=== PATIENT | female | born 1955 | race Caucasian/White ===

== ENCOUNTER 2017-04-22 06:30 | Day surgery (SDC) | payer OTHER ==
[2017-04-22] MEDS ORDERED: Lactated Ringers 1,000 ML IV SCH (07:00)
[2017-04-22] MEDS ORDERED: Propofol 200 MG/20 ML SDV ONE ×2 (07:41→07:58)
[2017-04-22] MEDS ORDERED: Midazolam 1 MG/ML 2 ML SDV ONE (07:41)
[2017-04-22] MEDS ORDERED: fentaNYL 100 MCG/2 ML SDV ONE (07:41)
[2017-04-22 09:13] VITALS: BP 117/70
--- NOTE | 2017-04-22 09:21 | OR ---
DATE OF PROCEDURE: 04/22/2017 PREOPERATIVE DIAGNOSIS: Colon cancer screening. POSTOPERATIVE DIAGNOSIS: Two small colon polyps, transverse colon and 20 cm from the anal verge. PROCEDURE: Colonoscopy to the cecum with biopsy resection of 2 small colon polyps. ANESTHESIA: IV anesthesia with monitored anesthesia care. INDICATION: This 61-year-old white female is referred for a colonoscopy for colon cancer screening. She says her last colonoscopic exam was done 10 years ago. She also says she had some polyps, which were removed. Presumably, these were hyperplastic because her colonoscopist told her she would not need another colonoscopy for 10 years. I counseled her for the procedure including risks and alternatives, and she gave her informed consent to proceed. DESCRIPTION OF PROCEDURE: The patient was placed in the left lateral decubitus position. IV anesthesia was administered by the Anesthesia Service. Time-out was held. A rectal exam was performed, which was unremarkable. The flexible video Olympus colonoscope was introduced through her anus, up her rectum, out her colon, all the way to the cecum. En route, in the transverse colon, we saw a small polyp, which was removed with a couple of bites of biopsy forceps. Once the cecum was reached, the scope was slowly withdrawn, examining the mucosa throughout. No additional mucosal abnormalities were noted until we reached 20 cm from the anal verge. Here another small polyp was seen, which was removed with the biopsy forceps. The scope was brought back into the rectum, where it was retroflexed. The distal rectum appeared unremarkable. The scope was straightened and removed. She tolerated the procedure well. Keith Melchor MD /[id number]
== END 2017-04-22 09:10 | disposition home or self-care (01) ==
LOC: JP.SDS 06:30
PROVIDERS: ATTEND Surgery
DX: Z12.11 Encounter for screening for malignant neoplasm of colon (principal); D12.3 Benign neoplasm of transverse colon; D12.6 Benign neoplasm of colon, unspecified; E11.22 Type 2 diabetes mellitus with diabetic chronic kidney disease; N18.3 Chronic kidney disease, stage 3 (moderate); G47.30 Sleep apnea, unspecified; E78.5 Hyperlipidemia, unspecified; K21.9 Gastro-esophageal reflux disease without esophagitis; E66.9 Obesity, unspecified; Z88.1 Allergy status to other antibiotic agents; Z88.8 Allergy status to other drugs, medicaments and biological substances
CPT/HCPCS: 88305; J2250; J2704; J3010; J7120

== ENCOUNTER 2017-07-12 09:56 | Emergency (ER) | payer OTHER ==
[2017-07-12 10:06] VITALS: BP 138/72
[2017-07-12] MEDS: Aspirin 81 MG Tab.Chew PO ONE (10:37)
--- NOTE | 2017-07-12 10:37 | EDM.PDOC ---
ED HPI GENERAL MEDICAL PROBLEM - General Chief Complaint: Chest Pain Stated Complaint: CHEST PAIN ALSO IN JAW AREA Time Seen by Provider: 07/12/17 10:30 Source of Information: Reports: Patient, Family History Limitations: Reports: No Limitations - History of Present Illness INITIAL COMMENTS - FREE TEXT/NARRATIVE: pt arrived with pain that went around the Bra line and to her back. This did last for about 1 hr. She did not vomit or get sweaty. She is pain free at this time. She has a known hiatal hernia. Onset: Today, Other (lasted about 1/2 hour and she was more concerned because she had the jaw pain. ) Duration: Minutes: Location: Reports: Chest, Abdomen Associated Symptoms: Reports: Chest Pain chest Pain Score (Numeric/FACES): 2 - Related Data Allergies Allergy/AdvReac Type Severity Reaction Status Date / Time ciprofloxacin Allergy Body Aches Verified 07/12/17 10:07 pramipexole di-HCl Allergy Body Aches Verified 07/12/17 10:07 [From Mirapex] Home Meds: Home Meds Fluticasone Propionate [Flonase] 2 spray BRANDI ASDIRECTED PRN 08/24/13 [History] Aspirin [Adult Low Dose Aspirin EC] 81 mg PO DAILY 05/16/15 [History] Cholecalciferol (Vitamin D3) [Vitamin D3] 5,000 unit PO DAILY 05/16/15 [History] Loratadine [Claritin] 10 mg PO DAILY PRN 05/16/15 [History] Docosahexanoic Acid/EPA [Fish Oil Concentrate Softgel] 1 tab PO BID 02/18/16 [ History] EPINEPHrine [Epipen] 0.3 mg IM ASDIRECTED 02/18/16 [History] Gluc 2KCl/Chondr/Wanda Hy/Hy Ac [Glucosamine & Chondroitin Cap] 2 tab PO DAILY [History] Montelukast Sodium [Singulair] 10 mg PO DAILY PRN 02/18/16 [History] Niacin 500 mg PO BID 02/18/16 [History] Vitamin B Complex [B Complex] 1 tab PO DAILY 02/18/16 [History] Calcium Carb/Mag Ox/Zinc Gluc [Puzdevh-Ngbjbqlpa-Bhzd] 1 tab PO BEDTIME [History] Cetirizine [ZyrTEC] 10 mg PO DAILY 04/20/17 [History] Past Medical History HEENT History: Reports: Allergic Rhinitis, Epistaxis, Impaired Vision Cardiovascular History: Reports: High Cholesterol Other Cardiovascular History: stress test 3 year ago Respiratory History: Reports: Sleep Apnea Gastrointestinal History: Reports: Cholelithiasis, Colon Polyp, GERD, Hiatal Hernia Genitourinary History: Reports: None DIRECTOR OF FIRST IMPRESSIONS History: Reports: Dysfunctional Uterine Bleeding, Endometrial Ablation Musculoskeletal History: Reports: Fracture, Osteoarthritis Neurological History: Reports: Concussion, Head Trauma, Vertigo Psychiatric History: Reports: Anxiety, Depression Endocrine/Metabolic History: Reports: Obesity/BMI 30+, Vitamin D Deficiency, Other (See Below) Other Endocrine/Metabolic History: pre-diabetic Hematologic History: Reports: Anemia, Iron Deficiency Oncologic (Cancer) History: Reports: Breast Other Oncologic History: right side ok to use - Infectious Disease History Infectious Disease History: Reports: Chicken Pox, Measles, Mumps - Past Surgical History Head Surgeries/Procedures: Reports: None HEENT Surgical History: Reports: Other (See Below) Other HEENT Surgeries/Procedures: cauterized left side for nose bleeds Cardiovascular Surgical History: Reports: None Respiratory Surgical History: Reports: None GI Surgical History: Reports: Appendectomy, Cholecystectomy, Colonoscopy Female Surgical History: Reports: Breast Biopsy, Endometrial Ablation Endocrine Surgical History: Reports: None Neurological Surgical History: Reports: None Musculoskeletal Surgical History: Reports: Arthroscopic Knee, Other (See Below) Other Musculoskeletal Surgeries/Procedures:: Right foot cyst removed Oncologic Surgical History: Reports: Biopsy of Breast, Lumpectomy Dermatological Surgical History: Reports: None Social & Family History - Family History Family Medical History: Noncontributory Cardiac: Reports: Bypass, Hypertension, Pacemaker, Stent - Tobacco Use Smoking Status *Q: Never Smoker Second Hand Smoke Exposure: No - Caffeine Use Caffeine Use: Reports: Soda - Alcohol Use Days Per Week of Alcohol Use: 0 - Recreational Drug Use Recreational Drug Use: No ED ROS GENERAL - Review of Systems Review Of Systems: See Below Constitutional: Reports: No Symptoms HEENT: Reports: No Symptoms Respiratory: Reports: No Symptoms Cardiovascular: Reports: Chest Pain, Other (pt developed pain around the bra line and this went to her back. She has a long history of reflux and a hiatal hernia. ) Endocrine: Reports: No Symptoms GI/Abdominal: Reports: Abdominal Pain : Reports: No Symptoms Musculoskeletal: Reports: No Symptoms Skin: Reports: No Symptoms ED EXAM, GENERAL - Physical Exam Exam: See Below Free Text/Narrative:: pt arrived with a history of 1/2 hour of pain in the lower chest and upper abdoman. She was not nauseated and did not vomit. She has a history of reflux and a hiatal hernia. Exam Limited By: No Limitations General Appearance: Alert, No Apparent Distress, Anxious, Other (pt had become pain free prior to arrival. ) Ears: Normal TMs Nose: Normal Inspection Throat/Mouth: Normal Inspection Head: Atraumatic Neck: Normal Inspection Respiratory/Chest: No Respiratory Distress Cardiovascular: Regular Rate, Rhythm GI/Abdominal: Soft, Non-Tender (Female) Exam: Deferred Rectal (Female) Exam: Deferred Back Exam: Normal Inspection Extremities: Normal Inspection Neurological: Alert, Oriented, Normal Cognition Psychiatric: Normal Affect Course - Vital Signs Last Recorded V/S: Last Vital Signs Temp 36.0 C 07/12/17 10:03 Pulse 72 07/12/17 10:03 Resp 20 07/12/17 10:03 BP 138/72 07/12/17 10:03 Pulse Ox 99 07/12/17 10:03 - Orders/Labs/Meds Orders: Active Orders 24 hr Category Date Time Status EKG Documentation Completion [RC] ASDIRECTED Care 07/12/17 10:15 Active UA W/MICROSCOPIC [URIN] Urgent Lab 07/12/17 11:18 Ordered EKG 12 Lead [EK] Routine Ther 07/12/17 10:15 Ordered Labs: Laboratory Tests 07/12/17 07/12/17 07/12/17 Range/Units 10:23 10:23 10:23 WBC 6.1 (4.5-11.0) K/uL RBC 4.63 (3.30-5.50) M/uL Hgb 12.3 (12.0-15.0) g/dL Hct 38.1 (36.0-48.0) % MCV 82 (80-98) fL MCH 27 (27-31) pg MCHC 32 (32-36) % Plt Count 289 (150-400) K/uL Neut % (Auto) 57 (36-66) % Lymph % (Auto) 28 (24-44) % [place] % (Auto) 12 H (2-6) % Eos % (Auto) 3 (2-4) % Baso % (Auto) 0 (0-1) % Sodium 142 (140-148) mmol/L Potassium 4.0 (3.6-5.2) mmol/L Chloride 104 (100-108) mmol/L Carbon Dioxide 27 (21-32) mmol/L Anion Gap 11.0 (5.0-14.0) mmol/L BUN 22 H (7-18) mg/dL Creatinine 1.1 H (0.6-1.0) mg/dL Est Cr Clr Drug Dosing 52.89 mL/min Estimated GFR (MDRD) 51 L (>60) Glucose 110 H (74-106) mg/dL Calcium 9.4 (8.5-10.1) mg/dL Total Bilirubin 0.3 (0.2-1.0) mg/dL AST 21 (15-37) U/L ALT 32 (12-78) U/L Alkaline Phosphatase 84 (46-116) U/L Creatine Kinase 72 (26-192) U/L Troponin I < 0.017 (0.000-0.056) ng/mL Total Protein 7.2 (6.4-8.2) g/dL Albumin 3.6 (3.4-5.0) g/dL Globulin 3.6 H (2.3-3.5) g/dL Albumin/Globulin Ratio 1.0 L (1.2-2.2) Lipase (73-393) U/L 07/12/17 Range/Units 11:07 WBC (4.5-11.0) K/uL RBC (3.30-5.50) M/uL Hgb (12.0-15.0) g/dL Hct (36.0-48.0) % MCV (80-98) fL MCH (27-31) pg MCHC (32-36) % Plt Count (150-400) K/uL Neut % (Auto) (36-66) % Lymph % (Auto) (24-44) % [place] % (Auto) (2-6) % Eos % (Auto) (2-4) % Baso % (Auto) (0-1) % Sodium (140-148) mmol/L Potassium (3.6-5.2) mmol/L Chloride (100-108) mmol/L Carbon Dioxide (21-32) mmol/L Anion Gap (5.0-14.0) mmol/L BUN (7-18) mg/dL Creatinine (0.6-1.0) mg/dL Est Cr Clr Drug Dosing mL/min Estimated GFR (MDRD) (>60) Glucose (74-106) mg/dL Calcium (8.5-10.1) mg/dL Total Bilirubin (0.2-1.0) mg/dL AST (15-37) U/L ALT (12-78) U/L Alkaline Phosphatase (46-116) U/L Creatine Kinase (26-192) U/L Troponin I (0.000-0.056) ng/mL Total Protein (6.4-8.2) g/dL Albumin (3.4-5.0) g/dL Globulin (2.3-3.5) g/dL Albumin/Globulin Ratio (1.2-2.2) Lipase 208 (73-393) U/L Meds: Medications Discontinued Medications Generic Name Dose Route Start Last Admin Trade Name Freq PRN Reason Stop Dose Admin Aspirin 324 mg 07/12/17 10:16 07/12/17 10:37 Aspirin PO 07/12/17 10:17 162 mg ONETIME ONE Administration Famotidine 20 mg 07/12/17 10:59 07/12/17 11:09 Pepcid PO 07/12/17 11:00 20 mg ONETIME ONE Administration - Re-Assessments/Exams Free Text/Narrative Re-Assessment/Exam: 07/12/17 11:26 cardiac enzymes are normal Her other labs look normal. She had a gastro 1 year ago which showed sig esophagitis and inflamation from reflux. She also was found to have a hiatal hernia. Departure - Departure Time of Disposition: 11:32 Disposition: Home, Self-Care 01 Condition: Fair Clinical Impression: GERD (gastroesophageal reflux disease), Atypical chest pain Referrals: Benita Solis MD [Primary Care Provider] - (Out patient stress test TuesdayJuly 15 at 0715am. To see Dr Sow TuesdayJuly 18 at 11:15am) Forms: ED Department Discharge Care Plan Goals: appt with regular provider in 2-3 days, rtc for a exercise cardiolyte, rtc if pt should have recurrent severe pain. - My Orders Last 24 Hours: My Active Orders 07/12/17 10:15 EKG Documentation Completion [RC] ASDIRECTED EKG 12 Lead [EK] Routine 07/12/17 11:18 UA W/MICROSCOPIC [URIN] Urgent - Assessment/Plan Last 24 Hours: My Active Orders 07/12/17 10:15 EKG Documentation Completion [RC] ASDIRECTED EKG 12 Lead [EK] Routine 07/12/17 11:18 UA W/MICROSCOPIC [URIN] Urgent
[2017-07-12] MEDS: Famotidine 20 MG Tab PO ONE (11:09)
== END 2017-07-12 11:57 | disposition home or self-care (01) ==
LOC: JP.ED 09:56
DX: K21.9 Gastro-esophageal reflux disease without esophagitis (principal); E66.9 Obesity, unspecified; Z88.8 Allergy status to other drugs, medicaments and biological substances; Z79.82 Long term (current) use of aspirin
CPT/HCPCS: 36415; 80053; 81001; 82550; 83690; 84484; 85025; 93005; 99285; A9270

== ENCOUNTER 2018-05-05 06:27 | Day surgery (SDC) | payer OTHER ==
[2018-05-05] MEDS ORDERED: Lactated Ringers 1,000 ML IV SCH (07:00)
[2018-05-05] MEDS ORDERED: fentaNYL 100 MCG/2 ML SDV ONE (07:28)
[2018-05-05] MEDS ORDERED: Midazolam 1 MG/ML 2 ML SDV ONE (07:28)
[2018-05-05] MEDS ORDERED: Propofol 200 MG/20 ML SDV ONE ×2 (07:28→08:00)
[2018-05-05 09:13] VITALS: BP 118/81
--- NOTE | 2018-05-05 11:39 | OR ---
DATE OF PROCEDURE: 05/05/2018 PREOPERATIVE DIAGNOSIS: History of serrated sessile adenoma. POSTOPERATIVE DIAGNOSIS: Unremarkable colonoscopy, history of serrated sessile adenoma. PROCEDURE: Colonoscopy to the cecum. SURGEON: Keith Melchor MD ANESTHESIA: IV anesthesia with monitored anesthesia care. INDICATION: This 62-year-old white female is here for a colonoscopy. She has a history of serrated sessile adenoma. Her last colonoscopic exam was done a year ago. I counseled her for the procedure, including risks and alternatives, and she gave her informed consent to proceed. DESCRIPTION OF PROCEDURE: The patient was placed in the left lateral decubitus position. IV anesthesia was administered by the Anesthesia Service. Time-out was held. A rectal exam was performed, which was unremarkable. The flexible video Olympus colonoscope was introduced through her anus, up her rectum, out her colon, all the way to the cecum. To accomplish this, we had to apply abdominal compression. Once the cecum was reached, the scope was slowly withdrawn examining the mucosa throughout. No mucosal abnormalities were noted. The scope was retroflexed in the rectum with the distal rectum appearing unremarkable. The scope was straightened and removed. She tolerated the procedure well. Keith Melchor MD /[id number]
== END 2018-05-05 09:30 | disposition home or self-care (01) ==
LOC: JP.SDS 06:27
PROVIDERS: ATTEND Surgery
DX: Z12.11 Encounter for screening for malignant neoplasm of colon (principal); E66.9 Obesity, unspecified; G47.33 Obstructive sleep apnea (adult) (pediatric); K21.9 Gastro-esophageal reflux disease without esophagitis; C50.911 Malignant neoplasm of unspecified site of right female breast; R73.03 Prediabetes; Z86.010 Personal history of colon polyps; Z91.013 Allergy to seafood; Z88.1 Allergy status to other antibiotic agents; Z88.8 Allergy status to other drugs, medicaments and biological substances
CPT/HCPCS: 45378; J2250; J2704; J3010; J7120

== ENCOUNTER 2021-05-08 07:54 | Day surgery (SDC) | payer OTHER ==
[2021-05-08] MEDS ORDERED: Midazolam 1 MG/ML 2 ML SDV ONE (08:06)
[2021-05-08] MEDS ORDERED: fentaNYL 100 MCG/2 ML SDV ONE (08:06)
[2021-05-08] MEDS ORDERED: Propofol 200 MG/20 ML SDV ONE (08:06)
[2021-05-08] MEDS ORDERED: Sodium Chloride 0.9% 1,000 ML IV SCH (08:30)
[2021-05-08 11:04] VITALS: BP 137/81
[2021-05-08 11:05] VITALS: PULSE 66
== END 2021-05-08 11:10 | disposition home or self-care (01) ==
LOC: JP.SDS 07:54
PROVIDERS: ATTEND Surgery
DX: Z12.11 Encounter for screening for malignant neoplasm of colon (principal); K63.5 Polyp of colon; E11.9 Type 2 diabetes mellitus without complications
CPT/HCPCS: 45380; 88305; J2250; J2704; J3010; J7030

== ENCOUNTER 2023-05-31 14:09 | Emergency (ER) | payer MEDICARE, BC ==
[2023-05-31 14:51] LABS: BASOPHILS PERCENT AUTO 0.2 % (0.1-1.3); EOSINOPHILS ABSOLUTE AUTO 0.12 K/uL (0.00-0.40); HEMATOCRIT 37.6 % (34.3-46.0); IMMATURE GRAN PERCENT AUTO 0.2 % (0.0-0.7); LYMPHOCYTES ABSOLUTE AUTO 1.85 K/uL (0.8-3.3); LYMPHOCYTES PERCENT AUTO 30.2 % (11.4-47.7); MEAN CORPUSCULAR HEMOGLOBIN 26.1 pg (31.6-35.5); MEAN CORPUSCULAR HGB CONC 31.9 g/dL (31.6-35.5); MEAN CORPUSCULAR VOLUME 81.9 fL (81.4-99.0); MONOCYTES ABSOLUTE AUTO 0.51 K/uL (0.20-0.90); MONOCYTES PERCENT AUTO 8.3 % (3.3-12.6); NEUTROPHILS ABSOLUTE AUTO 3.63 K/uL (1.0-7.6); NEUTROPHILS PERCENT AUTO 59.1 % (40.0-78.1); PLATELET COUNT,PLT 236 K/uL (130-375); RED BLOOD CELL COUNT 4.59 M/uL (3.77-5.24); WHITE BLOOD CELL COUNT,WBC 6.1 K/uL (3.2-11.0)
[2023-05-31 14:52] LABS: BASOPHILS ABSOLUTE AUTO 0.01 K/uL (0.00-0.10); IMMATURE GRAN ABSOLUTE AUTO 0.01 K/uL (0.00-0.23)
[2023-05-31 15:16] VITALS: BP 127/74; PULSE 63
[2023-05-31 15:22] LABS: ALANINE AMINOTRANSFERASE,ALT 36 U/L (12-78); ALBUMIN 3.3 g/dL (3.4-5.0); ALKALINE PHOSPHATASE 95 U/L (46-116); AMYLASE 31 U/L (25-115); ASPARTATE AMNIOTRANSFERASE,AST 18 U/L (15-37); BILIRUBIN TOTAL 0.2 mg/dL (0.2-1.0); BLOOD UREA NITROGEN,BUN 21 mg/dL (7-18); CALCIUM 9.5 mg/dL (8.5-10.1); CARBON DIOXIDE,CO2 25 mmol/L (21-32); CHLORIDE,CL 102 mmol/L (100-108); CREATININE 0.9 mg/dL (0.6-1.0); EST CRCL DRUG DOSING (CG) 59.79 mL/min; ESTIMATED GFR 71 mL/min (>60); GLUCOSE RANDOM 113 mg/dL (74-106); MAGNESIUM 1.9 mg/dL (1.8-2.4); POTASSIUM,K 3.8 mmol/L (3.6-5.2); PRO B-TYPE NATRIUR PEPT,BNPPRO 75 pg/mL (5-125); PROTEIN TOTAL,TP 6.7 g/dL (6.4-8.2); SODIUM,NA 140 mmol/L (140-148); TROPONIN I HIGH SENSITIVITY 4.3 pg/mL (<=60.3)
[2023-05-31 15:48] LABS: APPEARANCE,URINE CLEAR (CLEAR); BILIRUBIN,URINE NEGATIVE (NEGATIVE); COLOR,URINE YELLOW (YELLOW); GLUCOSE,URINE NEGATIVE (NEGATIVE); KETONES,URINE NEGATIVE (NEGATIVE); LEUKOCYTE ESTERASE,URINE NEGATIVE (NEGATIVE); NITRITE,URINE NEGATIVE (NEGATIVE); OCCULT BLOOD,URINE TRACE-INTACT (NEGATIVE); PH,URINE 6.5 (5.0-8.0); PROTEIN,URINE NEGATIVE (NEGATIVE); UROBILINOGEN,URINE 0.2 EU/dL (0.2-1.0)
[2023-05-31 15:55] LABS: AMORPHOUS SEDIMENT,URINE NOT SEEN; BACTERIA,URINE NOT SEEN; EPITHELIAL CELLS,URINE RARE; MUCUS,URINE NOT SEEN; RBC,URINE 0-5 (0-5); WBC,URINE NOT SEEN (0-5)
== END 2023-05-31 16:40 | disposition home or self-care (01) ==
LOC: JP.ED 14:09
DX: R07.2 Precordial pain (principal); E78.00 Pure hypercholesterolemia, unspecified; E66.9 Obesity, unspecified; K21.9 Gastro-esophageal reflux disease without esophagitis; Z79.899 Other long term (current) drug therapy; Z88.1 Allergy status to other antibiotic agents; Z91.013 Allergy to seafood; Z88.8 Allergy status to other drugs, medicaments and biological substances; Z68.37 Body mass index [BMI] 37.0-37.9, adult
CPT/HCPCS: 36415; 71045; 71045-26; 80053; 81001; 82150; 83735; 83880; 84484; 85025; 85379; 93010; 99283; 99285

== ENCOUNTER 2024-12-31 04:28 | Emergency (ER) | payer MEDICARE, BC ==
[2024-12-31 05:08] VITALS: BP 145/87
[2024-12-31 05:15] VITALS: PULSE 85
== END 2024-12-31 05:28 | disposition home or self-care (01) ==
LOC: JP.ED 04:28
DX: R04.0 Epistaxis (principal); E66.9 Obesity, unspecified; Z68.38 Body mass index [BMI] 38.0-38.9, adult; Z86.16 Personal history of COVID-19; Z90.49 Acquired absence of other specified parts of digestive tract; Z88.1 Allergy status to other antibiotic agents; Z88.8 Allergy status to other drugs, medicaments and biological substances; Z79.899 Other long term (current) drug therapy
CPT/HCPCS: 99283